=== PATIENT | female | born 1980 | race African-American/Black ===

== ENCOUNTER 2022-07-05 11:34 | Outpatient (CLI) | payer OTHER, SELFPAY ==
--- NOTE | ~2022-07-05 | MR_ITS ---
EXAMINATION: MR knee LT wo con DATE: 07/05/2022 12:50 INDICATION: Acute onset left knee pain TECHNIQUE: Magnetic resonance imaging (MRI) of the left knee was performed without intravenous contra st. Sequences included coronal PD-weighted FSE, coronal PD-weighted FS FSE, sagittal T2-weighted FSE , sagittal PD-weighted FS FSE and axial PD weighted fat saturated FSE. COMPARISON: None. FINDINGS: Medial compartment: Medial meniscus is normal. Articular cartilage appears normal. There is focal marrow edema along the anteromedial rim of the medial tibial plateau which could be due to otherwise indiscernible chondroma lacia at the toes appear to be a very subtle change in contour to the articular cortex suggesting thi s could represent an impaction or insufficiency fracture. Lateral compartment: Lateral meniscus is normal. Articular cartilage is normal. Patellofemoral compartment: Articular cartilage is normal. Ligaments and tendons: Complete tear of the anterior cruciate ligament. Posterior cruciate ligament is normal.. The medial c ollateral ligament and fibular collateral ligament complex are normal. Mild tendinopathy/enthesopathy at the patellar insertions of the quadriceps and patellar tendons. The visualized medial and lateral hamstring tendons as well as the iliotibial band are normal. Fluid: Small to moderate-sized left knee joint effusion. No loose osteochondral bodies identified. Osseous/other: Normal marrow signal excite from the previous noted small region of subarticular edema at the anterom edial rim of the medial tibial plateau. No pathologic marrow replacing process. IMPRESSION: 1. Small region of marrow edema underlying a very subtle change in cortical contour along the articul ar surface at the anteromedial rim of the medial tibial plateau suspicious for an impaction versus in sufficiency fracture. Differential would include reactive edema related to otherwise indiscernible ov erlying chondromalacia. 2. Complete tear of the anterior cruciate ligament. 3. Small to moderate-sized left knee joint effusion. Reviewed, dictated and finalized at location A. [employer] IMPRESSION: 1. Small region of marrow edema underlying a very subtle change in cortical con tour along the articular surface at the anteromedial rim of the medial tibial p lateau suspicious for an impaction versus insufficiency fracture. Differential would include reactive edema related to otherwise indiscernible overlying chond romalacia. 2. Complete tear of the anterior cruciate ligament. 3. Small to moderate-sized left knee joint effusion.
== END 2022-07-05 11:35 | disposition home or self-care (01) ==
PROVIDERS: Visit Provider Physician Assistant
DX: M25.462 Effusion, left knee (principal); S83.512A Sprain of anterior cruciate ligament of left knee, initial encounter; X58.XXXA Exposure to other specified factors, initial encounter
CPT/HCPCS: 73721